=== PATIENT | male | born 1975 | race Caucasian/White ===

== ENCOUNTER 2020-04-27 23:11 | Emergency (ER) | payer OTHER ==
--- NOTE | 2020-04-27 23:21 | ED Physician Documentation ---
History of Present Illness - Stated complaint Stated Complaint: FIT FOR CONFINEMENT - History obtained from History obtained from: Patient - Additonal information Additional information: the patient is brought in by FANNIE for Medical clearance for incarceration. Patient admits to drinking alcohol denies any other complaints.Patient was seen at [facility] prior to my evaluation and was medically cleared for incarceration however proper forms were not completed. Review of Systems Constitutional: reports: Reviewed and negative Eyes: reports: Reviewed and negative Ears: reports: Reviewed and negative Nose: reports: Reviewed and negative Throat: reports: Reviewed and negative Cardiac: reports: Reviewed and negative Respiratory: reports: Reviewed and negative GI: reports: Reviewed and negative : reports: Reviewed and negative Skin: reports: Reviewed and negative Musculoskeletal: reports: Reviewed and negative Neurologic: reports: Reviewed and negative Psychiatric: reports: Other (admits to drinking alcohol) Endocrine: reports: Reviewed and negative Immunocompromised: reports: Reviewed and negative PD ED PE NORMAL - Vitals Vital signs reviewed: Yes - General General: Alert and oriented X 3, No acute distress, Well developed/nourished - HEENT HEENT: PERRL - Neck Neck: Supple, no meningeal sign - Cardiac Cardiac: RRR, No murmur - Respiratory Respiratory: Clear bilaterally - Abdomen Abdomen: Normal bowel sounds, Soft, Non tender, Non distended - Derm Derm: Warm and dry - Extremities Extremities: No deformity - Neuro Neuro: Alert and oriented X 3, sound recording technician 2-12 intact, No motor deficit, No sensory deficit, Normal speech - Psych Psych: Normal mood, Normal affect Results - Vitals Vitals: Vital Signs - 24 hr 04/27/20 23:12 Temperature 37 C Heart Rate 93 Respiratory 16 Rate Blood Pressure 134/88 H O2 Saturation 99 Oxygen O2 Source Room air PD MEDICAL DECISION MAKING - ED course ED course: 45-year-old male brought in by law enforcement for medical clearance for incarceration artery medically cleared for [facility]pc by the physician at the emergency room [facility] however proper paperwork was not completed. Patie nt denies any complaints but does admit to drinking alcohol. Departure - Departure Disposition: 01 Home, Self Care Clinical Impression: Alcohol abuse, Medical clearance for incarceration Instructions: ED Alcohol Abuse Follow-Up: Tera Tapia DO [Primary Care Provider] - As Needed Discharge Date/Time: 04/28/20 00:00
[2020-04-27 23:29] VITALS: BP 134/88
== END 2020-04-28 | disposition home or self-care (01) ==
LOC: ED 23:11
DX: F10.10 Alcohol abuse, uncomplicated (principal)
CPT/HCPCS: 99281; 99282

== ENCOUNTER 2020-04-28 10:09 | Emergency (ER) | payer MEDICARE, MEDICAID ==
[2020-04-28] MEDS ORDERED: FOLIC ACID INJ 1 MG, THIAMINE INJ 100 MG, MAGNESIUM SULFATE 2 GM, MULTIVITAMIN 10 ML in... IV STA ×5 (10:31)
[2020-04-28] MEDS ORDERED: DEXAMETHASONE 10 MG/ML VIAL IVP STA (10:32)
[2020-04-28] MEDS ORDERED: LORazepam 2 MG/ML VIAL IVP STA ×3 (10:32→17:52)
--- NOTE | 2020-04-28 10:34 | ED Physician Documentation ---
History of Present Illness - Stated complaint Stated Complaint: WITHDRAWL/SHAKEY - Chief complaint Chief Complaint: General - History obtained from History obtained from: Patient - History of Present Illness Timing: Last night - Additonal information Additional information: 45-year-old male presents to the emergency department this morning in alcohol withdrawal. He indicates that last night he was in the emergency department here was medically cleared for incarceration and this morning they gave him a dose of Librium prior to discharge from the [facility]. He is uncertain how much the dose was he felt that it helped a little bit he is now shaky diaphoretic and in withdrawal. He indicates that he has gone through withdrawal a number of times with Librium, it has helped. He usually does not stay sober for more than a week. He does not recall the last time he was 5 days without alcohol. He has been in a 90-day treatment program previously resulting about 2 months of sobriety. This was about 8 years ago. He drinks mostly vodka and beer and he will drink half a gallon of vodka per day. Review of Systems Constitutional: reports: Fatigue, Sweats. denies: Fever, Chills Eyes: denies: Decreased vision Ears: denies: Ear pain Nose: denies: Rhinorrhea / runny nose, Congestion Throat: denies: Dental pain / toothache Cardiac: denies: Chest pain / pressure, Palpitations Respiratory: denies: Dyspnea, Cough GI: reports: Nausea. denies: Abdominal Pain, Vomiting : denies: Dysuria, Frequency Skin: denies: Rash Musculoskeletal: denies: Neck pain, Back pain, Extremity pain Neurologic: denies: Generalized weakness, Focal weakness, Numbness PD PAST MEDICAL HISTORY - Past Surgical History Past Surgical History: No - Allergies Allergies/Adverse Reactions: Allergies Allergy/AdvReac Type Severity Reaction Status Date / Time No Known Drug Allergies Allergy Verified 04/28/20 10:25 - Social History Does the pt smoke?: Yes Smoking Status: Current every day smoker Does the pt drink ETOH?: Yes ETOH Use: Beer, Liquor Does the pt have substance abuse?: Yes Substance Use and Type: Other - POLST Patient has POLST: No PD ED PE NORMAL - Vitals Vital signs reviewed: Yes (Tachycardic and hypertensive) - General General: Alert and oriented X 3, Well developed/nourished, Other (Diaphoretic 45-year-old male with the shakes. He is cooperative and interactive and appears to be in withdrawal) - HEENT HEENT: Atraumatic, PERRL, EOMI - Neck Neck: Supple, no meningeal sign, No bony TTP - Cardiac Cardiac: RRR, No murmur - Respiratory Respiratory: No respiratory distress, Clear bilaterally - Abdomen Abdomen: Soft, Non tender - Back Back: No CVA TTP, No spinal TTP - Derm Derm: Normal color, Warm and dry, No rash - Extremities Extremities: No deformity, No edema, No calf tenderness / cord - Neuro Neuro: Alert and oriented X 3, search engine optimization manager 2-12 intact, No motor deficit, No sensory deficit, Normal speech Eye Opening: Spontaneous Motor: Obeys Commands Verbal: Oriented GCS Score: 15 - Psych Psych: Other (mood is withdrawn and the affect is flat) Results - Vitals Vitals: Vital Signs - 24 hr 04/28/20 04/28/20 04/28/20 10:15 12:25 14:00 Temperature 36.7 C 36.7 C Heart Rate 108 H 112 H 93 Respiratory 20 14 18 Rate Blood Pressure 139/91 H 110/69 123/73 O2 Saturation 98 95 95 04/28/20 04/28/20 16:00 18:00 Temperature 36.8 C 36.7 C Heart Rate 96 100 Respiratory 13 18 Rate Blood Pressure 122/74 128/100 H O2 Saturation 98 98 Oxygen O2 Source Room air - Labs Labs: Laboratory Tests 04/28/20 04/28/20 04/28/20 10:54 10:54 10:54 WBC 5.8 RBC 4.34 L Hgb 14.2 Hct 42.7 MCV 98.4 H MCH 32.7 H MCHC 33.3 RDW 15.5 H Plt Count 246 MPV 10.0 Neut # (Auto) 4.9 Lymph # (Auto) 0.4 L [place] # (Auto) 0.4 Eos # (Auto) 0.1 Baso # (Auto) 0.0 Absolute Nucleated RBC 0.00 Nucleated RBC % 0.0 Sodium 139 Potassium 3.8 Chloride 101 Carbon Dioxide 28 Anion Gap 10.0 BUN 10 Creatinine 0.9 Estimated GFR (MDRD) 92 Glucose 159 H Lactic Acid 3.8 H* Calcium 9.0 Total Bilirubin 0.8 AST 38 ALT 40 Alkaline Phosphatase 76 Total Protein 7.0 Albumin 4.1 Globulin 2.9 Albumin/Globulin Ratio 1.4 Lipase 42 Urine Color Urine Clarity Urine pH Ur Specific [place] Urine Protein Urine Glucose (UA) Urine Ketones Urine Occult Blood Urine Nitrite Urine Bilirubin Urine Urobilinogen Ur Leukocyte Esterase Ur Microscopic Review Urine Culture Comments Urine Opiates Screen Ur Oxycodone Screen Urine Methadone Screen Ur Propoxyphene Screen Ur Barbiturates Screen Ur Tricyclics Screen Ur Phencyclidine Scrn Ur Amphetamine Screen U Methamphetamines Scrn U Benzodiazepines Scrn Urine Cocaine Screen U Cannabinoids Screen Ethyl Alcohol < 5.0 04/28/20 13:53 WBC RBC Hgb Hct MCV MCH MCHC RDW Plt Count MPV Neut # (Auto) Lymph # (Auto) [place] # (Auto) Eos # (Auto) Baso # (Auto) Absolute Nucleated RBC Nucleated RBC % Sodium Potassium Chloride Carbon Dioxide Anion Gap BUN Creatinine Estimated GFR (MDRD) Glucose Lactic Acid Calcium Total Bilirubin AST ALT Alkaline Phosphatase Total Protein Albumin Globulin Albumin/Globulin Ratio Lipase Urine Color YELLOW Urine Clarity CLEAR Urine pH 8.0 H Ur Specific [place] 1.020 Urine Protein NEGATIVE Urine Glucose (UA) NEGATIVE Urine Ketones TRACE Urine Occult Blood NEGATIVE Urine Nitrite NEGATIVE Urine Bilirubin NEGATIVE Urine Urobilinogen 0.2 (NORMAL) Ur Leukocyte Esterase NEGATIVE Ur Microscopic Review NOT INDICATED Urine Culture Comments NOT INDICATED Urine Opiates Screen NEGATIVE Ur Oxycodone Screen NEGATIVE Urine Methadone Screen NEGATIVE Ur Propoxyphene Screen NEGATIVE Ur Barbiturates Screen NEGATIVE Ur Tricyclics Screen NEGATIVE Ur Phencyclidine Scrn NEGATIVE Ur Amphetamine Screen NEGATIVE U Methamphetamines Scrn NEGATIVE U Benzodiazepines Scrn POSITIVE H Urine Cocaine Screen NEGATIVE U Cannabinoids Screen NEGATIVE Ethyl Alcohol PD MEDICAL DECISION MAKING - ED course Complexity details: reviewed old records, reviewed results, re-evaluated patient, considered differential, d/w patient ED course: 45-year-old alcoholic male in acute withdrawal is a heavy drinker. He has signs of significant withdrawal this morning after being intoxicated last night. Today he is administered a banana bag intravenously 10 mg of dexamethasone and 2 mg of Ativan intravenously. card services specialist is consulted in the case.The patient has significant withdrawal symptoms and he indicates to the social welfare administrator that he feels suicidal and feels that he needs treatment. The DCR is dispatched to the case in search of a dual diagnosis bed. At shift change care is turned over to Dr. Gabe Gordon. Departure - Departure Clinical Impression: Alcohol abuse, Suicidal ideations Alcohol withdrawal Qualifiers: Complication of substance-induced condition: with unspecified complication Qualified Code(s): F10.239 - Alcohol dependence with withdrawal, unspecified Condition: Fair
[2020-04-28 10:59] LABS: BASOPHILS % (AUTO) 0.3 %; EOSINOPHILS # (AUTO) 0.1 10^3/uL (0.0-0.7); EOSINOPHILS % (AUTO) 0.9 %; HGB - HEMOGLOBIN 14.2 g/dL (14.0-18.0); LYMPHOCYTES # (AUTO) 0.4 10^3/uL (1.5-3.5); LYMPHOCYTES % (AUTO) 7.4 %; MEAN CORPUSCULAR HEMOGLOBIN 32.7 pg (27.0-31.0); MEAN CORPUSCULAR HGB CONC 33.3 g/dL (32.0-36.0); MEAN CORPUSCULAR VOLUME 98.4 fL (80.0-94.0); MONOCYTES # (AUTO) 0.4 10^3/uL (0.0-1.0); MONOCYTES % (AUTO) 7.1 %; NEUTROPHILS # (AUTO) 4.9 10^3/uL (1.5-6.6); PLT - PLATELET COUNT 246 10^3/uL (130-450); RED BLOOD COUNT 4.34 10^6/uL (4.70-6.10); RED CELL DISTRIBUTION WIDTH 15.5 % (12.0-15.0); WHITE BLOOD COUNT 5.8 x10^3/uL (4.8-10.8)
[2020-04-28 11:21] LABS: ALBUMIN 4.1 g/dL (3.2-5.5); ALBUMIN/GLOBULIN RATIO 1.4 (1.0-2.2); ALKALINE PHOSPHATASE 76 IU/L (42-121); ALT ALANINE AMINOTRANSFERASE 40 IU/L (10-60); AST ASPARTATE AMINOTRANSFERASE 38 IU/L (10-42); BILIRUBIN,TOTAL 0.8 mg/dL (0.2-1.0); BUN - BLOOD UREA NITROGEN 10 mg/dL (6-20); CARBON DIOXIDE - CO2 28 mmol/L (21-32); CHLORIDE 101 mmol/L (101-111); CREATININE 0.9 mg/dL (0.6-1.2); GLUCOSE 159 mg/dL (70-100); LIPASE 42 U/L (22-51); SODIUM 139 mmol/L (135-145)
[2020-04-28 13:57] LABS: MUDS CUTOFF CONCENTRATIONS CUTOFF CONC BELOW:
[2020-04-28 14:03] LABS: BILIRUBIN,URINE NEGATIVE (NEGATIVE); GLUCOSE, URINE (UA) NEGATIVE (NEGATIVE); KETONES,URINE (UA) TRACE mg/dL (NEGATIVE); LEUKOCYTE ESTERASE, URINE NEGATIVE (NEGATIVE); NITRITE,URINE NEGATIVE (NEGATIVE); OCCULT BLOOD,URINE NEGATIVE (NEGATIVE); PROTEIN,URINE NEGATIVE (NEGATIVE); UROBILINOGEN,URINE 0.2 (NORMAL) E.U./dL (NORMAL)
[2020-04-28 14:04] LABS: CLARITY,URINE CLEAR (CLEAR)
[2020-04-28 14:14] LABS: COCAINE SCREEN URINE NEGATIVE (NEGATIVE); METHAMPHETAMINES SCREEN, URINE NEGATIVE (NEGATIVE)
[2020-04-28 14:15] LABS: AMPHETAMINE SCREEN,URINE NEGATIVE (NEGATIVE); BENZODIAZEPINES SCREEN, URINE POSITIVE (NEGATIVE); METHADONE SCREEN, URINE NEGATIVE (NEGATIVE); OPIATE SCREEN, URINE NEGATIVE (NEGATIVE); OXYCODONE SCREEN, URINE NEGATIVE (NEGATIVE); PROPOXYPHENE SCREEN, URINE NEGATIVE (NEGATIVE); TRICYCLIC ANTIDEPRESSANT,URINE NEGATIVE (NEGATIVE)
[2020-04-28] MEDS ORDERED: chlordiazePOXIDE 25 MG CAPSULE PO STA (19:43)
[2020-04-29] MEDS: chlordiazePOXIDE 25 MG CAPSULE PO PRN ×3 (00:19→11:53)
[2020-04-29] MEDS ORDERED: PROPRANOLOL 10 MG TABLET PO SCH (10:00)
[2020-04-29] MEDS ORDERED: PARoxetine 10 MG TABLET PO SCH (10:00)
--- NOTE | 2020-04-29 14:02 | ED Physician Documentation ---
ED Addendum - Addendum Addendum: 04/29/20 14:01 The patient reportedly did well overnight with rest. He had been given p.o. medication most recently for withdrawal symptoms. He is resting comfortably at time of change of shift. Through the course of the morning he was seen by social work and they were able to find placement for him at a psychiatric facility. He is to be transferred in stable condition. Discharge diagnosis depression 2. Suicidal ideation 3. Alcohol abuse with acute alcohol intoxication, improving Disposition transfer to psychiatric facility.
[2020-04-29] MEDS ORDERED: LORazepam 1 MG TABLET PO STA (14:25)
[2020-04-29 14:45] VITALS: BP 110/60
== END 2020-04-29 15:19 ==
LOC: ED 10:09
DX: F10.239 Alcohol dependence with withdrawal, unspecified (principal); F32.9 Major depressive disorder, single episode, unspecified; F17.200 Nicotine dependence, unspecified, uncomplicated; R45.851 Suicidal ideations; R03.0 Elevated blood-pressure reading, without diagnosis of hypertension; R00.0 Tachycardia, unspecified; Z20.828 Contact with and (suspected) exposure to other viral communicable diseases
CPT/HCPCS: 36415; 80053; 80306; 81003; 83605; 83690; 85025; 96365; 96375; 96376; 99284; 99285; A9270; J2060; J3411; J8499; U0004; 80320; 81001; 87086

== ENCOUNTER 2021-05-15 15:12 | Emergency (ER) | payer MEDICARE, MEDICAID ==
[2021-05-15] MEDS ORDERED: THIAMINE INJ 100 MG, MAGNESIUM SULFATE 2 GM, MULTIVITAMIN 10 ML in SODIUM CHLORIDE 0.9%... IV ONE (15:31)
[2021-05-15 15:43] LABS: BILIRUBIN,URINE NEGATIVE (NEGATIVE); GLUCOSE, URINE (UA) NEGATIVE (NEGATIVE); KETONES,URINE (UA) NEGATIVE (NEGATIVE); LEUKOCYTE ESTERASE, URINE NEGATIVE (NEGATIVE); NITRITE,URINE NEGATIVE (NEGATIVE); OCCULT BLOOD,URINE NEGATIVE (NEGATIVE); PROTEIN,URINE NEGATIVE (NEGATIVE); UROBILINOGEN,URINE 0.2 (NORMAL) E.U./dL (NORMAL)
[2021-05-15] MEDS ORDERED: LORazepam 2 MG/ML VIAL IVP STA ×2 (15:44→17:41)
[2021-05-15] MEDS ORDERED: SODIUM CHLORIDE 0.9% 1,000 ML IV STA (15:44)
[2021-05-15] MEDS ORDERED: ONDANSETRON 4 MG/2 ML VIAL IVP STA (15:44)
[2021-05-15 15:46] LABS: CLARITY,URINE CLEAR (CLEAR)
--- NOTE | 2021-05-15 15:48 | ED Physician Documentation ---
History of Present Illness - Stated complaint Stated Complaint: WITHDRAWALS - Chief complaint Chief Complaint: General - History obtained from History obtained from: Patient - Additonal information Additional information: 46 yo M w/ pmh of alcoholism presents stating he is having alcohol withdrawals. He had been sober for about 5 months up until about 2 weeks ago and has been drinking heavily since then, states he drinks hard alcohol and drank about a gallon in the last 24 hours. Stopped drinking 4 hours ago and is feeling shaky and nauseous. No hallucinations, confusion, or AMS. No vomiting, diarrhea, hematemesis or blood per rectum. Denies any other drug use. Has been to [facility] inpatient rehab in the past states "I think I need to go back again." Review of Systems Ten Systems: 10 systems reviewed and negative Constitutional: reports: Other (tremulous, [facility] withdrawal.) Psychiatric: reports: Anxiety. denies: Depressed, Suicidal, Hallucinations, Delusions PD PAST MEDICAL HISTORY - Past Medical History Past Medical History: Yes Other Past Medical History: Alcoholism - Past Surgical History Past Surgical History: No - Present Medications Home Medications: Ambulatory Orders Medication Instructions Recorded Confirmed chlordiazePOXIDE [Librium] 50 mg PO Q6H #15 05/15/21 - Allergies Allergies/Adverse Reactions: Allergies Allergy/AdvReac Type Severity Reaction Status Date / Time No Known Drug Allergies Allergy Verified 05/15/21 15:25 - Social History Does the pt smoke?: Yes Smoking Status: Current every day smoker Does the pt drink ETOH?: Yes Does the pt have substance abuse?: Yes - POLST Patient has POLST: No PD ED PE NORMAL - Vitals Vital signs reviewed: Yes - General General: Alert and oriented X 3, Well developed/nourished, Other (Pleasant, cooperative, midly anxious) - HEENT HEENT: Atraumatic, PERRL, EOMI, Moist mucous membranes, Pharynx benign - Neck Neck: Supple, no meningeal sign, No JVD - Cardiac Cardiac: No murmur, Other (tachycardic regular) - Respiratory Respiratory: No respiratory distress, Clear bilaterally - Abdomen Abdomen: Normal bowel sounds, Soft, Non tender, Non distended - Derm Derm: Normal color, Warm and dry, No rash - Extremities Extremities: No deformity, No tenderness to palpate, Normal ROM s pain, No edema, No calf tenderness / cord - Neuro Neuro: Alert and oriented X 3 Eye Opening: Spontaneous Motor: Obeys Commands Verbal: Oriented GCS Score: 15 - Psych Psych: Other (anxious, mild tremor) Results - Vitals Vitals: Vital Signs - 24 hr 05/15/21 05/15/21 15:21 16:18 Temperature 37.1 C 37.3 C Heart Rate 108 H 98 Respiratory 20 12 Rate Blood Pressure 122/70 119/75 O2 Saturation 98 95 Oxygen O2 Source Room air - Labs Labs: Laboratory Tests 05/15/21 05/15/21 05/15/21 15:28 15:46 15:46 WBC 5.0 RBC 4.92 Hgb 15.5 Hct 46.6 MCV 94.7 H MCH 31.5 H MCHC 33.3 RDW 13.7 Plt Count MPV 12.9 H Neut # (Auto) 2.9 Lymph # (Auto) 1.4 L [place] # (Auto) 0.4 Eos # (Auto) 0.2 Baso # (Auto) 0.0 Absolute Nucleated RBC 0.00 Nucleated RBC % 0.0 Manual Slide Review Indicated Platelet Estimate Platelet Morphology PLATELET CLUMPING Sodium 143 Potassium 4.3 Chloride 104 Carbon Dioxide 28 Anion Gap 11.0 BUN 9 Creatinine 0.8 Estimated GFR (MDRD) 105 Glucose 122 H Calcium 8.8 Magnesium Total Bilirubin 0.5 AST 37 ALT 51 Alkaline Phosphatase 83 Total Protein 7.6 Albumin 4.5 Globulin 3.1 Albumin/Globulin Ratio 1.5 Lipase 42 Urine Color YELLOW Urine Clarity CLEAR Urine pH 6.0 Ur Specific [place] 1.020 Urine Protein NEGATIVE Urine Glucose (UA) NEGATIVE Urine Ketones NEGATIVE Urine Occult Blood NEGATIVE Urine Nitrite NEGATIVE Urine Bilirubin NEGATIVE Urine Urobilinogen 0.2 (NORMAL) Ur Leukocyte Esterase NEGATIVE Ur Microscopic Review NOT INDICATED Urine Culture Comments NOT INDICATED 05/15/21 15:46 WBC RBC Hgb Hct MCV MCH MCHC RDW Plt Count MPV Neut # (Auto) Lymph # (Auto) [place] # (Auto) Eos # (Auto) Baso # (Auto) Absolute Nucleated RBC Nucleated RBC % Manual Slide Review Platelet Estimate Platelet Morphology Sodium Potassium Chloride Carbon Dioxide Anion Gap BUN Creatinine Estimated GFR (MDRD) Glucose Calcium Magnesium 2.3 Total Bilirubin AST ALT Alkaline Phosphatase Total Protein Albumin Globulin Albumin/Globulin Ratio Lipase Urine Color Urine Clarity Urine pH Ur Specific [place] Urine Protein Urine Glucose (UA) Urine Ketones Urine Occult Blood Urine Nitrite Urine Bilirubin Urine Urobilinogen Ur Leukocyte Esterase Ur Microscopic Review Urine Culture Comments PD MEDICAL DECISION MAKING - ED course Complexity details: reviewed old records, reviewed results, re-evaluated patient, considered differential, d/w patient ED course: This is a 46-year-old male with past medical history of alcoholism who presents in alcohol withdrawal. He has mild tremors but is otherwise alert, oriented and appropriate. No seizure activity. Labs are stable and vital signs are stable. He received banana bag here and a total of 1.5 mg of Ativan here in ER and was started on Librium prior to discharge. Discharge him home on a Librium taper and patient plans to follow-up with outpatient rehab or detox, information on local resources provided to patient. Departure - Departure Disposition: Home, Self Care Clinical Impression: Alcohol withdrawal Qualifiers: Complication of substance-induced condition: uncomplicated Qualified Code(s): F10.230 - Alcohol dependence with withdrawal, uncomplicated Instructions: ED Withdrawal Alcohol Prescriptions: chlordiazePOXIDE [Librium] 50 mg PO Q6H #15 Comments: You presented with alcohol withdrawal. Your labs and vitals are stable. I have given you electrolytes and a dose of IV ativan with improvement in your symptoms. I am discharging you with Librium which is a benzodiazepine (anti anxiety) medication to help you with withdrawal symptoms. It is extremely important that you do not drink alcohol while on this medication because it can cause respiratory suppression. Please follow up with resources provided to you in your discharge paperwork for detox or rehab centers.
[2021-05-15 15:56] LABS: BASOPHILS % (AUTO) 0.6 %; EOSINOPHILS # (AUTO) 0.2 10^3/uL (0.0-0.7); EOSINOPHILS % (AUTO) 3.8 %; HCT - HEMATOCRIT 46.6 % (42.0-52.0); HGB - HEMOGLOBIN 15.5 g/dL (14.0-18.0); LYMPHOCYTES # (AUTO) 1.4 10^3/uL (1.5-3.5); MEAN CORPUSCULAR HEMOGLOBIN 31.5 pg (27.0-31.0); MEAN CORPUSCULAR HGB CONC 33.3 g/dL (32.0-36.0); MEAN CORPUSCULAR VOLUME 94.7 fL (80.0-94.0); MEAN PLATELET VOLUME 12.9 fL (7.4-11.4); MONOCYTES # (AUTO) 0.4 10^3/uL (0.0-1.0); MONOCYTES % (AUTO) 7.1 %; NEUTROPHILS # (AUTO) 2.9 10^3/uL (1.5-6.6); NEUTROPHILS % (AUTO) 59.1 %; RED BLOOD COUNT 4.92 10^6/uL (4.70-6.10); RED CELL DISTRIBUTION WIDTH 13.7 % (12.0-15.0)
[2021-05-15 16:09] LABS: ALBUMIN 4.5 g/dL (3.2-5.5); ALBUMIN/GLOBULIN RATIO 1.5 (1.0-2.2); BILIRUBIN,TOTAL 0.5 mg/dL (0.2-1.0); CALCIUM 8.8 mg/dL (8.5-10.3); CREATININE 0.8 mg/dL (0.6-1.2); POTASSIUM 4.3 mmol/L (3.5-5.0); TOTAL PROTEIN 7.6 g/dL (6.7-8.2)
[2021-05-15 17:36] LABS: PLATELET MORPHOLOGY PLATELET CLUMPING (NORMAL); SLIDE REVIEW? Indicated
[2021-05-15] MEDS ORDERED: chlordiazePOXIDE 25 MG CAPSULE PO STA (17:37)
[2021-05-15 17:59] VITALS: BP 110/70
== END 2021-05-15 18:01 | disposition home or self-care (01) ==
LOC: ED 15:12
DX: F10.230 Alcohol dependence with withdrawal, uncomplicated (principal); F41.9 Anxiety disorder, unspecified; F17.200 Nicotine dependence, unspecified, uncomplicated
CPT/HCPCS: 36415; 80053; 81003; 83690; 83735; 85025; 96374; 96375; 96376; 99283; A9270; J2060; J3411; 81001; 87086

== ENCOUNTER 2023-08-28 15:39 | Outpatient (CLI) | payer MEDICARE, MEDICAID | END 2023-08-28 15:40 | disposition critical access hospital (66) | LOC: EMS 15:39 | DX: Z04.6 Encounter for general psychiatric examination, requested by authority (principal); R45.851 Suicidal ideations | CPT/HCPCS: A0425; A0429 ==

== ENCOUNTER 2023-08-28 16:00 | Emergency (ER) | payer MEDICARE, MEDICAID ==
--- NOTE | 2023-08-28 16:09 | ED Physician Documentation ---
PD HPI MHE - Stated complaint Stated Complaint: MHE - History obtained from History obtained from: Patient, Other (DCR) - Additional information Additional information: Per the DCR patient was in the [place] court today and stated that he wants to kill himself and his parents. He states that he wants to cut his wrists. He recently completed 5 days of alcohol detox at [facility]. DCR is concerned that the patient may not be voluntary and thus we will detain him. Patient has been brought here for medical clearance. Patient reports he has been having intrusive thoughts telling him to hurt himself or others. He says he has not had alcohol in 10 days. Denies other substance use. Review of Systems Constitutional: denies: Fever Cardiac: denies: Chest pain / pressure Respiratory: denies: Dyspnea Psychiatric: reports: Depressed, Suicidal PD PAST MEDICAL HISTORY - Past Medical History Cardiovascular: None Respiratory: None Neuro: None Endocrine/Autoimmune: None GI: None : None HEENT: None Psych: Depression, Anxiety, Other Musculoskeletal: None Derm: None - Past Surgical History Past Surgical History: No - Present Medications Home Medications: Ambulatory Orders Medication Instructions Recorded Confirmed chlordiazePOXIDE [Librium] 50 mg PO Q6H #15 05/15/21 - Allergies Allergies/Adverse Reactions: Allergies Allergy/AdvReac Type Severity Reaction Status Date / Time No Known Drug Allergies Allergy Verified 08/28/23 16:11 - Social History Does the pt smoke?: Yes Smoking Status: Current every day smoker Does the pt drink ETOH?: Yes Does the pt have substance abuse?: Yes - POLST Patient has POLST: No PD ED PE NORMAL - General General: Alert and oriented X 3, No acute distress, Well developed/nourished - HEENT HEENT: Atraumatic, Moist mucous membranes, Pharynx benign - Neck Neck: Supple, no meningeal sign - Cardiac Cardiac: RRR, Strong equal pulses - Respiratory Respiratory: No respiratory distress, Clear bilaterally - Abdomen Abdomen: Soft, Non tender, Non distended - Derm Derm: Warm and dry - Neuro Neuro: Alert and oriented X 3, No motor deficit, Normal speech - Psych Psych: Other (Involuntary tics with arms, patient reports having Tourette's; Anxious appearing, cooperative) Results - Vitals Vitals: Vital Signs - 24 hr 08/28/23 16:11 Temperature 36.7 C Heart Rate 90 Respiratory 18 Rate Blood Pressure 112/87 H O2 Saturation 95 Oxygen O2 Source Room air - Labs Labs: Laboratory Tests 08/28/23 08/28/23 08/28/23 16:05 16:12 16:12 WBC 7.3 RBC 4.66 L Hgb 14.7 Hct 44.9 MCV 96.4 H MCH 31.5 H MCHC 32.7 RDW 13.5 Plt Count 310 MPV 9.0 Neut # (Auto) 5.6 Lymph # (Auto) 1.1 L [place] # (Auto) 0.4 Eos # (Auto) 0.1 Baso # (Auto) 0.0 Absolute Nucleated RBC 0.00 Nucleated RBC % 0.0 Sodium 137 Potassium 4.0 Chloride 103 Carbon Dioxide 27 Anion Gap 7.0 BUN 10 Creatinine 0.9 Estimated GFR (MDRD) 91 Glucose 108 H Calcium 9.2 Magnesium 2.0 Total Bilirubin 0.3 AST 16 ALT 25 Alkaline Phosphatase 63 Total Creatine Kinase 68 Total Protein 6.9 Albumin 4.2 Globulin 2.7 Albumin/Globulin Ratio 1.6 Lipase 25 TSH 0.63 Urine Color YELLOW Urine Clarity CLEAR Urine pH 6.0 Ur Specific [place] <=1.005 Urine Protein NEGATIVE Urine Glucose (UA) NEGATIVE Urine Ketones NEGATIVE Urine Occult Blood NEGATIVE Urine Nitrite NEGATIVE Urine Bilirubin NEGATIVE Urine Urobilinogen 0.2 (NORMAL) Ur Leukocyte Esterase NEGATIVE Ur Microscopic Review NOT INDICATED Urine Culture Comments NOT INDICATED Salicylates < 1.5 Urine Opiates Screen NEGATIVE Ur Buprenorphine Scrn NEGATIVE Ur Oxycodone Screen NEGATIVE Urine Methadone Screen NEGATIVE Acetaminophen 0.1 Ur Barbiturates Screen NEGATIVE Ur Tricyclics Screen NEGATIVE Ur Phencyclidine Scrn NEGATIVE Ur Amphetamine Screen NEGATIVE U Methamphetamines Scrn NEGATIVE U Benzodiazepines Scrn NEGATIVE Urine Cocaine Screen NEGATIVE U Cannabinoids Screen NEGATIVE Ur Drug Screen Comment CUTOFF CONC BELOW: Ethyl Alcohol < 10.0 SARS-CoV-2 (PCR) 08/28/23 16:25 WBC RBC Hgb Hct MCV MCH MCHC RDW Plt Count MPV Neut # (Auto) Lymph # (Auto) [place] # (Auto) Eos # (Auto) Baso # (Auto) Absolute Nucleated RBC Nucleated RBC % Sodium Potassium Chloride Carbon Dioxide Anion Gap BUN Creatinine Estimated GFR (MDRD) Glucose Calcium Magnesium Total Bilirubin AST ALT Alkaline Phosphatase Total Creatine Kinase Total Protein Albumin Globulin Albumin/Globulin Ratio Lipase TSH Urine Color Urine Clarity Urine pH Ur Specific [place] Urine Protein Urine Glucose (UA) Urine Ketones Urine Occult Blood Urine Nitrite Urine Bilirubin Urine Urobilinogen Ur Leukocyte Esterase Ur Microscopic Review Urine Culture Comments Salicylates Urine Opiates Screen Ur Buprenorphine Scrn Ur Oxycodone Screen Urine Methadone Screen Acetaminophen Ur Barbiturates Screen Ur Tricyclics Screen Ur Phencyclidine Scrn Ur Amphetamine Screen U Methamphetamines Scrn U Benzodiazepines Scrn Urine Cocaine Screen U Cannabinoids Screen Ur Drug Screen Comment Ethyl Alcohol SARS-CoV-2 (PCR) NOT DETECTED PD Medical Decision Making - ED course Complexity details: reviewed results, d/w patient ED course: 1721 - Patient has been medically cleared for inpatient psychiatric treatment. COVID test is still pending. Pt is a 48 yo M presenting for medical clearance for psychiatric placement. Pt was seen by DCR prior to arrival with plans for involuntary detainment pending medical clearance. Medical screening labs reviewed and pt is medically clear. Pt signed out at shift change - pending placement. Departure - Departure Disposition: 65 Psych Hosp/Unit DC/Xfer Clinical Impression: Suicidal ideation Forms: PCP List
[2023-08-28 16:16] LABS: BASOPHILS % (AUTO) 0.5 %; EOSINOPHILS # (AUTO) 0.1 10^3/uL (0.0-0.7); EOSINOPHILS % (AUTO) 1.2 %; HCT - HEMATOCRIT 44.9 % (42.0-52.0); HGB - HEMOGLOBIN 14.7 g/dL (14.0-18.0); LYMPHOCYTES # (AUTO) 1.1 10^3/uL (1.5-3.5); MEAN CORPUSCULAR HEMOGLOBIN 31.5 pg (27.0-31.0); MEAN CORPUSCULAR HGB CONC 32.7 g/dL (32.0-36.0); MEAN CORPUSCULAR VOLUME 96.4 fL (80.0-94.0); MONOCYTES # (AUTO) 0.4 10^3/uL (0.0-1.0); NEUTROPHILS # (AUTO) 5.6 10^3/uL (1.5-6.6); NEUTROPHILS % (AUTO) 77.2 %; PLT - PLATELET COUNT 310 10^3/uL (130-450); RED BLOOD COUNT 4.66 10^6/uL (4.70-6.10); RED CELL DISTRIBUTION WIDTH 13.5 % (12.0-15.0); WHITE BLOOD COUNT 7.3 x10^3/uL (4.8-10.8)
[2023-08-28] MEDS: LORazepam 1 MG TABLET PO STA ×2 (16:22→19:47)
[2023-08-28 16:23] LABS: BILIRUBIN,URINE NEGATIVE (NEGATIVE); GLUCOSE, URINE (UA) NEGATIVE (NEGATIVE); KETONES,URINE (UA) NEGATIVE (NEGATIVE); LEUKOCYTE ESTERASE, URINE NEGATIVE (NEGATIVE); NITRITE,URINE NEGATIVE (NEGATIVE); OCCULT BLOOD,URINE NEGATIVE (NEGATIVE); PROTEIN,URINE NEGATIVE (NEGATIVE); UROBILINOGEN,URINE 0.2 (NORMAL) E.U./dL (NORMAL)
[2023-08-28 16:24] LABS: CLARITY,URINE CLEAR (CLEAR)
[2023-08-28 16:39] LABS: ACETAMINOPHEN 0.1 ug/mL; ALBUMIN 4.2 g/dL (3.2-5.5); ALBUMIN/GLOBULIN RATIO 1.6 (1.0-2.2); ALKALINE PHOSPHATASE 63 IU/L (42-121); ALT ALANINE AMINOTRANSFERASE 25 IU/L (10-60); AST ASPARTATE AMINOTRANSFERASE 16 IU/L (10-42); BILIRUBIN,TOTAL 0.3 mg/dL (0.2-1.0); BUN - BLOOD UREA NITROGEN 10 mg/dL (6-20); CALCIUM 9.2 mg/dL (8.5-10.3); CARBON DIOXIDE - CO2 27 mmol/L (21-32); CHLORIDE 103 mmol/L (101-111); CK- CREATINE KINASE 68 IU/L (30-223); CREATININE 0.9 mg/dL (0.6-1.3); ETOH - ETHANOL < 10.0 mg/dL; GFR - MDRD 91 (>89); GLUCOSE 108 mg/dL (74-104); LIPASE 25 U/L (11-82); SODIUM 137 mmol/L (135-145); TOTAL PROTEIN 6.9 g/dL (6.4-8.9)
[2023-08-28 16:42] LABS: AMPHETAMINE SCREEN,URINE NEGATIVE (NEGATIVE); BARBITURATE SCREEN,UR NEGATIVE (NEGATIVE); BENZODIAZEPINES SCREEN, URINE NEGATIVE (NEGATIVE); BUPRENORPHINE SCREEN, URINE NEGATIVE (NEGATIVE); COCAINE SCREEN URINE NEGATIVE (NEGATIVE); METHADONE SCREEN, URINE NEGATIVE (NEGATIVE); METHAMPHETAMINES SCREEN, URINE NEGATIVE (NEGATIVE); OPIATE SCREEN, URINE NEGATIVE (NEGATIVE); OXYCODONE SCREEN, URINE NEGATIVE (NEGATIVE); THC CANNABINOID SCREEN, URINE NEGATIVE (NEGATIVE); TRICYCLIC ANTIDEPRESSANT,URINE NEGATIVE (NEGATIVE)
[2023-08-28 16:45] LABS: SALICYLATE < 1.5 mg/dL
[2023-08-28 17:13] LABS: THYROID STIMULATING HORMONE 0.63 uIU/mL (0.34-5.60)
--- NOTE | 2023-08-28 18:47 | ED Physician Documentation ---
ED Addendum - Addendum Addendum: 08/28/23 18:46 Patient is excepted to the [facility] [place] accepts. COBRA forms completed. Patient was placed on an involuntary hold by CORNELIUS Bonner. Departure - Departure Disposition: [facility] Psych Hosp/Unit DC/Xfer Clinical Impression: Suicidal ideation Forms: PCP List
[2023-08-28 20:39] VITALS: BP 106/67; O2SAT 99
== END 2023-08-28 20:49 ==
LOC: EDUNIT# → ED 16:00
DX: R45.851 Suicidal ideations (principal); F17.200 Nicotine dependence, unspecified, uncomplicated
CPT/HCPCS: 36415; 80053; 80306; 80307; 81003; 82550; 83690; 83735; 84443; 85025; 87635; 99283; 99285; G0480; J8499; 80320; 80329; 81001; 87086